=== PATIENT | female | born 1990 | race Caucasian/White ===

== ENCOUNTER 2018-02-21 00:06 | Observation (INO) | payer BC ==
[~2018-02-21] VITALS: Ht 157.5 cm; Wt 69.0 kg
[~2018-02-21 00:06] MED LIST: Motrin PO; Percocet 5/325,Endoc PO
[2018-02-21 01:03] LABS: HEMATOCRIT 38.4 % (36.0-46.0); HEMOGLOBIN 13.4 G/DL (11.9-15.5); MCHC 34.9 G/DL (30.0-36.0); MCV 100.3 FL (83-99); PLATELET COUNT 223 K/uL (156-360); RBC DIS.WIDTH-SD 44.6 % (39-53); RED BLOOD COUNT 3.83 M/uL (3.80-5.20); WHITE BLOOD COUNT 7.5 K/uL (4.1-10.2)
[2018-02-21 01:11] LABS: ALBUMIN 4.3 g/dL (3.2-4.8); CHLORIDE 110 mEq/L (99-109); POTASSIUM 3.4 mEq/L (3.7-5.4); SODIUM 144 mEq/L (136-147)
[2018-02-21 01:13] LABS: GLUCOSE 103 mg/dL (70-99)
[2018-02-21 01:15] LABS: TOTAL BILIRUBIN 0.3 mg/dL (0.0-1.0)
[2018-02-21 01:17] LABS: ALKALINE PHOSPHATASE 41 IU/L (3-129); CREATININE 0.8 mg/dL (0.6-1.3); GFR ESTIMATE (CALCULATED) > 59 mL/min/
[2018-02-21 01:18] LABS: UREA NITROGEN (BUN) 13 mg/dL (9-23)
[2018-02-21 01:19] LABS: AST (GOT) 33 IU/L (2-34)
[2018-02-21 01:20] LABS: ALT (GPT) 29 IU/L (3-49)
[2018-02-21 01:21] LABS: LIPASE 30 U/L (1.0-51.0)
[2018-02-21 01:26] LABS: QUANTITATIVE HCG < 4.0 MIU/ML
[2018-02-21 04:17] VITALS: BP 123/76
[2018-02-21 07:50] LABS: HEMATOCRIT 32.5 % (36.0-46.0); MCH 33.6 PG (29.0-34.0); MCHC 33.2 G/DL (30.0-36.0); MCV 101.2 FL (83-99); PLATELET COUNT 198 K/uL (156-360); RBC DIS.WIDTH-CV 12.1 % (11.8-14.6); RBC DIS.WIDTH-SD 45.5 % (39-53); RED BLOOD COUNT 3.21 M/uL (3.80-5.20); WHITE BLOOD COUNT 8.7 K/uL (4.1-10.2)
[2018-02-21 07:53] LABS: HEMOGLOBIN 10.8 G/DL (11.9-15.5)
[2018-02-21 08:08] VITALS: BP 105/56
[2018-02-21 10:38] LABS: BASOPHIL (%) 0.2 % (0-1); EOSINOPHIL COUNT 0.1 K/uL (0-0.3); HEMATOCRIT 32.4 % (36.0-46.0); IMMATURE GRANULOCYTE (%) 0.2 % (0.0-0.7); LYMPHOCYTE (%) 17.1 % (15-42); LYMPHOCYTE COUNT 1.5 K/uL (1.0-2.8); MCH 34.6 PG (29.0-34.0); MCV 101.9 FL (83-99); MONOCYTE (%) 6.3 % (3-12); MONOCYTE COUNT 0.5 K/uL (0-0.8); NEUTROPHIL (%) 75.2 % (45-76); NEUTROPHIL COUNT 6.5 K/uL (1.8-6.4); PLATELET COUNT 182 K/uL (156-360); RBC DIS.WIDTH-CV 12.2 % (11.8-14.6); RBC DIS.WIDTH-SD 45.9 % (39-53); RED BLOOD COUNT 3.18 M/uL (3.80-5.20); WHITE BLOOD COUNT 8.6 K/uL (4.1-10.2)
[2018-02-21 11:45] VITALS: BP 118/66
[2018-02-21] MEDS ORDERED: PERCOCET 5/31 TABLET PO (11:46)
[2018-02-21] MEDS ORDERED: MOTRIN800 MG PO (11:46)
[2018-02-23 09:37] LABS: SOURCE SWAB
== END 2018-02-21 12:20 | disposition home or self-care (01) ==
LOC: EME 00:06 → 2EASTP 03:15 → EDOF 03:15 → ENRESERV 03:16 → 2EASTP 04:06
PROVIDERS: Emergency Medicine; Obstetrics & Gynecology; Physician Assistant
DX: N83.201 Unspecified ovarian cyst, right side (principal)
CPT/HCPCS: 76856; 80053; 83690; 84702; 85025; 85027; 87210; 87491; 87591; 99281; 99284; G0378; J2270; J7030; J7120